=== PATIENT | female | born 1990 | race Caucasian/White ===

== ENCOUNTER 2018-12-04 09:24 | Emergency (ER) | payer OTHER, SELFPAY ==
[2018-12-04 09:27] VITALS: BP 138/83; PULSE 107; RESP 18; TEMP 37.4; O2SAT 98
--- NOTE | 2018-12-04 09:38 | W.ED.GENAD ---
Discharge Plan Disposition Condition: Stable Discharge Details Chief Complaint: Nausea/Vomit/Diar Clinical Impression: Influenza A Primary Care Provider: Edwin Watson ED Provider: Peewee Chaney Home Meds and New Rx's Prescriptions: New oseltamivir [Tamiflu] 6 mg/mL suspension for reconstitution 75 mg PO Q12H 5 Days Qty: 125 RF: 0 Continued 19 29 mg iron- 1 mg tablet,chewable 1 tab PO DAILY Qty: 90 RF: 3 Discharge Instructions Instructions: Influenza (ED) Additional Instructions: Small, frequent sips of fluids or popsicles to maintain hydration. Take medication as prescribed. Tylenol as needed for aches pains or fever. Return for any acute concerns. Please followup with [facility] [employer] [employer] for recheck next week. Medical Decision Making 28-year-old female is approximately 9 weeks presents with 3 days of nausea, vomiting, intermittent loose stools without blood. Positive sick contacts with viral process at work. She has not had any significant abdominal pain or vaginal discharge. She arrives with a pulse of 107, otherwise reassuring vital signs. She is dehydrated in appearance. Difference diagnosis includes influenza, gastroenteritis, hyperemesis of . Patient's chemistries are notable for mild hyponatremia of 135. CBC with white count 4, hematocrit 39. Positive for influenza. Patient resuscitated with 2 L of fluid. IMproved, tolerating po and making urine. Appropriate for outpatient management and will treat influenza with course of Tamiflu. HPI General Mode of arrival: ambulatory. Date/Time Provider Initiated Documentation: 12/04/18 09:25. Limitations to Documentation: no limitations. Information obtained by: patient. History of Present Illness 28 year old F presents to the emergency department with the chief complaint of Nausea and vomiting over 3 days time. No abdominal pain or vaginal dc, described as moderate, Quality is described as aching, and is localized to the abdomen. Patient reports no radiation. Patient started experiencing this day(s) and it has been constant. No relieving factors improve symptom(s), Eating worsens symptoms . Patient notes fever/chills, loss of appetite, malaise and nausea/vomiting; denies chest pain and shortness of breath. Patient did receive the following treatments prior to arrival, none Related Data Home Medications Medication Instructions Recorded Confirmed vitamin no.115-iron 29 1 tab PO DAILY #90 tab 11/29/18 12/04/18 mg-folic acid 1 mg chewable tablet oseltamivir [Tamiflu] 75 mg PO Q12H 5 Days #125 ml 12/04/18 Previous Rx's Medication Instructions Recorded vitamin no.115-iron 29 1 tab PO DAILY #90 tab 11/29/18 mg-folic acid 1 mg chewable tablet oseltamivir [Tamiflu] 75 mg PO Q12H 5 Days #125 ml 12/04/18 Allergies Allergy/AdvReac Type Severity Reaction Status Date / Time No Known Allergies Allergy Verified 12/04/18 09:31 General Stated Complaint: Nausea/Vomit/Diar HERMES: 3 Review of Systems Review of Systems 8 systems reviewed and otherwise negative [facility] Medical History Conductive hearing loss of right ear with unrestricted hearing of left ear (Acute 02/18/18) Conductive hearing loss, bilateral (Acute 06/17/18) Positive test (Acute) Family History Mother Marfans syndrome Social History Smoking/Tobacco Use Status: Never Female Reproductive History Menstrual control method: none Exam Narrative Exam Narrative: GEN: awake, alert, oriented 3. Pleasant, well groomed, interactive. HEAD: Normocephalic, atraumatic ENT: Mucous membranes dry, oropharynx unremarkable, External ear exam unremarkable EYES: PERRL, EOMI NECK: Full ROM, no LEIDY, no menigismus CHEST/RESP: Nontender, clear to auscultation bilateral, no wheeze/rhonchi/rales CARDIOVASCULAR: Regular and tachycardic no murmur, rub des. 2+ Rad pulse bilateral ABDOMEN: Soft, nontender, no mass. +Bowel sounds EXT: Full ROM, no edema, no rash Neuro: Grossly normal neurologic exam, conversant, interactive. Psych: Speech fluent, thoughts congruent, affect normal Course Vital Signs Temperature 37.4 C 12/04/18 09:27 Pulse 107 H 12/04/18 09:27 Respiratory Rate 18 12/04/18 09:27 Blood Pressure 138/83 12/04/18 09:27 Pulse Oximetry 98 12/04/18 09:27 Temperature 37.4 C 12/04/18 09:27 Temperature Source Skin 12/04/18 09:27 Pulse 107 H 12/04/18 09:27 Respiratory Rate 18 12/04/18 09:27 Blood Pressure 138/83 12/04/18 09:27 Pulse Oximetry 98 12/04/18 09:27 Oxygen Delivery Method Room Air 12/04/18 09:27 Oxygen Flow Rate 0 12/04/18 09:27 Pain Level 8 12/04/18 09:27
[2018-12-04] MEDS: Lactated Ringers 1,000 ML 1000 ML IV (09:46)
[2018-12-04 10:07] LABS: Abs Immature Grans 0.01 k/cumm (0.0-0.09); Absolute Basophil Count 0.02 k/cumm (0.0-0.2); Absolute Monocyte Count 0.62 k/cumm (0.11-0.7); Absolute Neutrophil Count 2.83 k/cumm (1.2-6.7); Basophils % 0.5; HCT 39.9 % (36.0-46.0); HGB 13.2 g/dL (12.0-15.5); Immature Grans % 0.2; Lymphocytes % 14.7; Mean Corp. HGB Concentration 33.1 g/dL (32.0-36.0); Mean Corpuscular Hemoglobin 31.3 pg (27.0-33.0); Mean Corpuscular Volume 94.5 fL (80-95); Mean Platelet Volume 10.7 fL (8.0-11.0); Monocytes % 15.2; Neutrophils % 69.4; Platelet Count 189 x1000/uL (130-400); RBC 4.22 m/cumm (4.00-5.20); RBC Distribution Width 11.5 % (11.7-14.6); White Blood Cell Count 4.08 k/cumm (4.4-10.8)
[2018-12-04] MEDS: Acetaminophen 500 MG TAB 1000 MG PO (10:07)
[2018-12-04 10:16] LABS: ALT 26 U/L (12-78); AST 19 U/L (15-37); Albumin 3.8 g/dL (3.4-5.0); Alkaline Phosphatase 75 U/L (46-116); BUN 8 mg/dL (7-18); Bilirubin, Total 0.3 mg/dL (0.2-1.0); CREATININE 0.75 mg/dL (0.55-1.02); Calcium 9.2 mg/dL (8.5-10.1); Chloride 100 mmol/L (98-107); Glucose 92 mg/dL (70-100); Magnesium 1.7 mg/dL (1.8-2.4); Potassium 3.7 mmol/L (3.5-5.1); Sodium 135 mmol/L (136-145); Total Protein 7.6 g/dL (6.4-8.2)
[2018-12-04 10:29] VITALS: BP 106/60; PULSE 100; TEMP 38; O2SAT 98
[2018-12-04] MEDS: DEXTROSE 5%-0.9% SALINE 1,000 ML 250 ML IV (10:40)
--- NOTE | 2018-12-04 10:40 | NUR.NOTE ---
patient denies nausea at this time, fluid ininfusing, will be medicated woth tamiflu Nursing Note:
[2018-12-04] MEDS: Oseltamivir 6 MG/ML 60 ML BTL 75 MG PO (11:05)
--- NOTE | 2018-12-04 11:06 | NUR.NOTE ---
patient medicated per MD order Nursing Note:
[2018-12-04 11:20] LABS: Bilirubin Negative (Negative); Blood Negative (Negative); Clarity Clear; Glucose Negative (Negative); Ketones Negative (Negative); Leukocyte Esterase Negative (Negative); Nitrite Negative (Negative); Urobilinogen 0.2 EU/dL (Up TO 0.2); pH 6.5 (5-8)
--- NOTE | 2018-12-04 12:03 | NUR.NOTE ---
patient received discharge and follow up instruction per MD order, IV dc'd Nursing Note:
== END 2018-12-04 12:05 | disposition home or self-care (01) ==
PROVIDERS: Emergency Provider Emergency Medicine; PCP Internal Medicine
DX: O99.89 Other specified diseases and conditions complicating pregnancy, childbirth and the puerperium (principal); J10.2 Influenza due to other identified influenza virus with gastrointestinal manifestations; Z3A.09 9 weeks gestation of pregnancy
CPT/HCPCS: 36415; 80053; 87449; 96360; 96361; 99284; 81003; 83735; 85025; 99283; J7042

== ENCOUNTER 2018-12-09 14:42 | Outpatient (CLI) | payer OTHER, SELFPAY ==
--- NOTE | 2018-12-09 15:23 | DI.US_ITS ---
SYMPTOMS/DIAGNOSIS: VAGINAL BLEEDING, ANTEPARTUM, O20.9; NO HEARTBEAT DETECTED, ? VIABILITY OB ULTRASOUND: Many abnormalities cannot be diagnosed. A normal exam does not exclude a congenital anomaly. Radiology No. [id number] LMP: Exam Date: 12/09/2018 [facility] wks days on EDC ([facility]) Confirmed: HISTORY: PREDICTED GESTATIONAL AGE NUMBER weeks with a range of week to weeks. 1 2 3 Multiple Determined by___1STUS___LMP___HISTORY Info. pertaining to fetus # PLACENTA PRESENTATION Grade Cephalic___ Anterior___Posterior___ Breech____ Right Left Transverse(head right___ Fundal___Low-lying___Previa___ Transverse(head left___ Varying BIOMETRY AMNIOTIC FLUID BPD: mm weeks Normal HC: mm weeks Oligo Polyhydramnios AC: mm weeks FL: mm weeks AMNIOTIC FLUID INDEX >26 WK CRL: 17 mm 8+1 weeks Cisterna Magna: mm CI: RUQ: LUQ Cerebellum: cm EFW: grams Percentile RLQ: LLQ Total: cms Composite AGE= wks EDC by US BIOPHYSICAL PROFILE ANATOMY IDENTIFIED SCORE 0/2 Heart: 4-Chamber___Rate:BPM LVOT: RVOT: Amniotic Fluid(>2cms)____ Stomach: Kidneys: Respirations (>30 secs) Bladder: Post. Fossa: Body Flex/Extension 3 vessel cord: Ventricles: cord insertion: Lips:____ Extremity Flex/Extension spinal morphology: Nose: Total Score= Palate: NS=not seen COMMENTS: Transabdominal and transvaginal exams were performed. A gestational sac is seen within the endometrium. A pole is seen with measurements corresponding to 8 weeks 1 day. No cardiac activity is seen. The gestational sac appears small for gestational age. The yolk sac has an abnormal flattened appearance. The ovaries appear normal. There is no evidence of free fluid or ectopic . IMPRESSION: Findings consistent with demise.
== END 2018-12-09 15:02 ==
PROVIDERS: PCP Internal Medicine; Visit Provider Obstetrics & Gynecology
DX: O20.9 Hemorrhage in early pregnancy, unspecified (principal); O02.1 Missed abortion
CPT/HCPCS: 76801

== ENCOUNTER 2018-12-18 15:42 | Outpatient (CLI) | payer OTHER, SELFPAY ==
[2018-12-18 16:23] LABS: HGB 12.9 g/dL (12.0-15.5); Mean Corp. HGB Concentration 32.3 g/dL (32.0-36.0); Mean Corpuscular Hemoglobin 30.2 pg (27.0-33.0); Mean Corpuscular Volume 93.7 fL (80-95); Mean Platelet Volume 10.3 fL (8.0-11.0); Platelet Count 279 x1000/uL (130-400); RBC 4.27 m/cumm (4.00-5.20); RBC Distribution Width 11.6 % (11.7-14.6); White Blood Cell Count 7.61 k/cumm (4.4-10.8)
[2018-12-18 17:27] LABS: HCG Quant, Pregnancy 257 mIU/mL (1-3)
== END 2018-12-18 16:02 ==
PROVIDERS: PCP Internal Medicine; Visit Provider Obstetrics & Gynecology
DX: O20.9 Hemorrhage in early pregnancy, unspecified (principal); O03.9 Complete or unspecified spontaneous abortion without complication
CPT/HCPCS: 36415; 85027; 86900; 86901; 84702

== ENCOUNTER 2019-05-22 11:36 | Emergency (ER) | payer OTHER, SELFPAY ==
[2019-05-22 11:41] VITALS: BP 125/64; PULSE 86; RESP 14; TEMP 36.7; O2SAT 99
--- NOTE | 2019-05-22 11:53 | DI.CT_ITS ---
SYMPTOM/DIAGNOSIS: CENTRAL CHEST PAIN, SOB. HX MARFANS AND AA CT ANGIOGRAPHY CHEST: 05/22 CT angiography was performed with multi slice acquisition and multi planar and 3D reconstruction. CT angiography of the chest was performed with a bolus infusion of 57 cc Omnipaque 350. Aorta is of normal diameter. No aortic dissection. Major branch vessels of the aorta in the chest appear normal. Right and left subclavian arteries appear normal in to the axillae. No mediastinal hematoma. No adenopathy. No pleural effusion. The lungs are clear. Pulmonary arterial circulation not well opacified. In the upper abdomen there is unremarkable appearance of visualized portions of liver, spleen, pancreas, adrenals, and kidneys. Visualized abdominal aorta is of normal diameter to the level of the bifurcation. Celiac trunk, SMA, BEN and renal arteries appear normal. There is normal appearance of the adrenals and kidneys. No upper abdominal adenopathy seen. CONCLUSION: Negative CT angiography of the chest.
--- NOTE | 2019-05-22 11:55 | W.ED.GENAD ---
Discharge Plan Disposition Patient Disposition: HOME Condition: Good Discharge Details Chief Complaint: Orthopedic Clinical Impression: Chest pain, Muscle strain Primary Care Provider: Edwin Watson ED Provider: Axel Sullivan Home Meds and New Rx's Prescriptions: New lidocaine [Lidoderm] 1 PATCH patch 1 patch Topical Q24H Qty: 4 RF: 0 Discharge Instructions Instructions: Muscle Strain (ED) Additional Instructions: At this time your CT scan shows no evidence of lung problem, or vessel problem. I suspect your symptoms are from a strained muscle. Please take the Lidoderm patch as directed. Please take Tylenol Motrin as needed for pain. If you notice any worsening of your symptoms, or any new symptoms such as vomiting, diarrhea, fever, chills, shortness of breath, chest pain, numbness, weakness, or fainting , please return immediately to the emergency department for reevaluation. Please follow up with your primary care provider as soon as possible for reassessment and reevaluation. As always, it was a pleasure participating in your medical care today. Referrals: Edwin Watson MD [Primary Care Provider] - Medical Decision Making This is a 29-year-old female with a past medical history of Marfan syndrome and aortic aneurysm. She presents today with notable chest tightness and achiness. Notably worsened with movement of the shoulder requiring utilization of pectoralis major and minor. No pulse deficit, no neurologic deficit, no evidence of significant deformity. Reproducible tenderness is present on palpation of the sternum. No severe murmur auscultated at this time. Oxygen saturation normal, lung sounds appear clear. Differential at this time is concerning for muscle strain, but also because of her history dissection, aneurysm, or pneumothorax. We will get a CT scan to evaluate for further etiology, evaluate from a laboratory perspective, place Lidoderm patch and reassess 12:58 PM Patient's laboratory work-up has returned, no white count, normal electrolytes, normal renal function, troponin normal, EKG unremarkable. CT scan has returned and shows no evidence of aneurysm, dissection, pneumothorax, or other acute abnormality per Dr. Sifuentes. Patient has near complete resolution of her pain with the application of the Lidoderm patch and Toradol. Patient is feeling much better at this time. I feel that her signs and symptoms at this time are clinically consistent with muscle strain and inconsistent with ACS, dissection, aneurysm or pneumothorax or pneumonia. At this time the patient feels very well, continues to demonstrate normal neurologic and vascular exam for upper extremities head neck. I have extensively reviewed the treatment plan and discharge instructions with the patient. I have addressed all patient concerns at this time. The patient was made aware of what symptoms to monitor for that would warrant a return to the emergency department. Discussed the plan with the patient, they demonstrate verbal understanding and agreement with our assessment and plan at this time. EKG 12: 01 Rate 65, intervals normal aside for a slightly shortened DC interval, QRS normal. No significant ST elevations or depressions, no evidence of delta wave. No other abnormalities. HPI General Date/Time Provider Initiated Documentation: 05/22/19 11:38. HPI Narrative: This is a 29-year-old female with a past medical history of Marfan syndrome, aortic aneurysm, who presents today for evaluation of chest pain. The patient states that at 5 AM she developed an onset of achy/stabbing chest pain. She denies a tearing sensation. It is worsened with movement of her arm. Throughout the day she noticed a gradually worsening component, in conjunction with some shortness of breath. When she went to open a door with her left arm it significantly worsened the pain. Patient denies any cough, fever, chills, numbness, tingling or weakness. She denies history of aneurysm neck rupture. She is not on blood thinners. She denies history of blood clot. She denies any other complaints at this time. She denies any other associated modifying factors. Related Data Home Medications Medication Instructions Recorded Confirmed lidocaine [Lidoderm] 1 patch TOPICAL Q24H #4 patch 05/22/19 Previous Rx's Medication Instructions Recorded lidocaine [Lidoderm] 1 patch TOPICAL Q24H #4 patch 05/22/19 Allergies Allergy/AdvReac Type Severity Reaction Status Date / Time No Known Allergies Allergy Verified 05/22/19 11:47 General Stated Complaint: Orthopedic HERMES: 3 Review of Systems Review of Systems All systems reviewed & are unremarkable except as noted in HPI and below PFSH Social History Smoking/Tobacco Use Status: Never Alcohol Intake: current Alcohol Intake frequency: a few times a week Alcohol type: beer Drug use: Never Substance use type: does not use Do you feel safe at home: Yes Do you feel safe in your relationship?: Yes Female Reproductive History Menstrual control method: none Exam Narrative Exam Narrative: 1.Const: Well-nourished, Well-developed, appearing stated age 2.Eyes: PERRL, no conjunctival injection, and symmetrical lids. 3.ENT: Atraumatic external nose and ears. Moist MM. Neck: Symmetric, trachea midline, No thyromegaly. 4.CVS: +S1/S2, No murmurs or gallops. Peripheral pulses 2+ and equal in all extremities. Brisk capillary refill in all extremities. 5.RESP: Unlabored respiratory effort. Clear to auscultation bilaterally. No wheezes rales or rhonchi. 6.GI: Soft, Nontender/Nondistended, No hepatosplenomegaly. No guarding or rebound. 7.MSK: Normocephalic/Atraumatic, Extremities w/o deformity No cyanosis or clubbing, Normal movement of all extremities. Notably long slender extremities. Notable reproducible chest tenderness on palpation of the mid to lower sternum as well as left side of the chest wall. Radial pulses +2 bilaterally. No crepitus or restriction in movement of the left shoulder, however the patient does have notable worsening of her pain with shoulder abduction when at 90 degrees, notably worse pain with utilization of the chest wall muscles. Normal movement and strength in the upper extremities bilaterally peer 8.Skin: Warm, Dry. No rashes or lesions. 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 Sensation grossly intact, no focal neurologic deficits. All 6 cardinal planes of vision are fully intact. No evidence of rotatory or vertical nystagmus. The patient demonstrated a normal [id number], good dexterity. There was no evidence of dysdiadochokinesia. Patient was able to ambulate without difficulty. There was no wide-based gait. Romberg, and [id number] are both normal on testing. Sensation was intact bilaterally as well as muscle strength bilaterally for all extremities. Patient was able to verbalize butter cup with no slurring, or miss pronunciation. 10.Psych: (AAO) x3. Appropriate mood and affect Course Vital Signs Temperature 36.7 C 05/22/19 11:41 Pulse 86 05/22/19 11:41 Respiratory Rate 14 05/22/19 11:41 Blood Pressure 125/64 05/22/19 11:41 Pulse Oximetry 99 05/22/19 11:41 Temperature 36.7 C 05/22/19 11:41 Temperature Source Temporal Artery Scan 05/22/19 11:41 Pulse 86 05/22/19 11:41 Respiratory Rate 14 05/22/19 11:41 Respiratory Effort Non-Labored 05/22/19 11:44 Blood Pressure 125/64 05/22/19 11:41 Blood Pressure Position Sitting 05/22/19 11:41 Pulse Oximetry 99 05/22/19 11:41 Oxygen Delivery Method Room Air 05/22/19 11:41 Oxygen Flow Rate 0 05/22/19 11:41 Pain Level 7 05/22/19 11:45 Comment 05/22/19 11:41
[2019-05-22] MEDS: Normal Saline 1,000 ML 1000 ML IV (12:12)
[2019-05-22] MEDS: Lidocaine 5% Patch 1 PATCH TP (12:12)
--- NOTE | 2019-05-22 12:15 | ED.GENADUL_ITS ---
Discharge Plan Disposition Patient Disposition: HOME Condition: Good Discharge Details Chief Complaint: Orthopedic Clinical Impression: Chest pain, Muscle strain Primary Care Provider: Edwin Watson ED Provider: Axel Sullivan Home Meds and New Rx's Prescriptions: New lidocaine [Lidoderm] 1 PATCH patch 1 patch Topical Q24H Qty: 4 RF: 0 Discharge Instructions Instructions: Muscle Strain (ED) Additional Instructions: At this time your CT scan shows no evidence of lung problem, or vessel problem. I suspect your symptoms are from a strained muscle. Please take the Lidoderm patch as directed. Please take Tylenol Motrin as needed for pain. If you notice any worsening of your symptoms, or any new symptoms such as vomiting, diarrhea, fever, chills, shortness of breath, chest pain, numbness, weakness, or fainting , please return immediately to the emergency department for reevaluation. Please follow up with your primary care provider as soon as possible for reassessment and reevaluation. As always, it was a pleasure participating in your medical care today. Referrals: Edwin Watson MD [Primary Care Provider] - Medical Decision Making This is a 29-year-old female with a past medical history of Marfan syndrome and aortic aneurysm. She presents today with notable chest tightness and achiness. Notably worsened with movement of the shoulder requiring utilization of pectoralis major and minor. No pulse deficit, no neurologic deficit, no evidence of significant deformity. Reproducible tenderness is present on palpation of the sternum. No severe murmur auscultated at this time. Oxygen saturation normal, lung sounds appear clear. Differential at this time is concerning for muscle strain, but also because of her history dissection, aneurysm, or pneumothorax. We will get a CT scan to evaluate for further etiology, evaluate from a laboratory perspective, place Lidoderm patch and r eassess 12:58 PM Patient's laboratory work-up has returned, no white count, normal electrolytes, normal renal function, troponin normal, EKG unremarkable. CT scan has returned and shows no evidence of aneurysm, dissection, pneumothorax, or other acute abnormality per Dr. Sifuentes. Patient has near complete resolution of her pain with the application of the Lidoderm patch and Toradol. Patient is feeling much better at this time. I feel that her signs and symptoms at this time are clinically consistent with muscle strain and inconsistent with ACS, dissection, aneurysm or pneumothorax or pneumonia. At this time the patient feels very well, continues to demonstrate normal neurologic and vascular exam for upper extremities head neck. I have extensively reviewed the treatment plan and dis charge instructions with the patient. I have addressed all patient concerns at this time. The patient was made aware of what symptoms to monitor for that would warrant a return to the emergency department. Discussed the plan with the patient, they demonstrate verbal understanding and agreement with our assessment and plan at this time. EKG 12: 01 Rate 65, intervals normal aside for a slightly shortened [place] interval, QRS normal. No significant ST elevations or depressions, no evidence of delta wave. No other abnormalities. HPI General Date/Time Provider Initiated Documentation: 05/22/19 11:38 . HPI Narrative: This is a 29-year-old female with a past medical history of Marfan syndrome, aortic aneurysm, who presents today for evaluation of chest pain. The patient states that at 5 AM she developed an onset of achy/stabbing chest pain. She denies a tearing sensation. It is worsened with movement of her arm. Throughout the day she noticed a gradually worsening component, in conjunction with some shortness of breath. When she went to open a door with her left arm it significantly worsened the pain. Patient denies any cough, fever, chills, numbness, tingling or weakness. She denies history of aneurysm neck rupture. She is not on blood thinners. She denies history of blood clot. She denies any other complaints at this time. She denies any other associated modifying factors. Related Data Home Medications Medication Instructions Recorded Confirmed lidocaine [Lidoderm] 1 patch TOPICAL Q24H #4 patch 05/22/19 Previous Rx's Medication Instructions Recorded lidocaine [Lidoderm] 1 patch TOPICAL Q24H #4 patch 05/22/19 Allergies Allergy/AdvReac Type Severity Reaction Status Date / Time No Known Allergies Allergy Verified 05/22/19 11:47 General Stated Complaint: Orthopedic HERMES: 3 Review of Systems Review of Systems All systems reviewed & are unremarkable except as noted in HPI and below PFSH Social History Smoking/Tobacco Use Status: Never Alcohol Intake: current Alcohol Intake frequency: a few times a week Alcohol type: beer Drug use: Never Substance use type: does not use Do you feel safe at home: Yes Do you feel safe in your relationship?: Yes Female Reproductive History Menstrual control method: none Exam Narrative Exam Narrative: 1.Const: Well-nourished, Well-developed, appearing stated age 2.Eyes: PERRL, no conjunctival injection, and symmetrical lids. 3.ENT: Atraumatic external nose and ears. Moist MM. Neck: Symmetric, trachea midline, No thyromegaly. 4.CVS: +S1/S2, No murmurs or gallops. Peripheral pulses 2+ and equal in all extremities. Brisk capillary refill in all extremities. 5.RESP: Unlabored respiratory effort. Clear to auscultation bilaterally. No wheezes rales or rhonchi. 6.GI: Soft, Nontender/Nondistended, No hepatosplenomegaly. No guarding or rebound. 7.MSK: Normocephalic/Atraumatic, Extremities w/o deformity No cyanosis or clubbing, Normal movement of all extremities. Notably long slender extremities. Notable reproducible chest tenderness on palpation of the mid to lower sternum as well as left side of the chest wall. Radial pulses +2 bilaterally. No crepitus or restriction in movement of the left shoulder, however the patient does have notable worsening of her pain with shoulder abduction when at 90 degrees, notably worse pain with utilization of the chest wall muscles. Normal movement and strength in the upper extremities bilaterally peer 8.Skin: Warm, Dry. No rashes or lesions. 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 Sensation grossly intact, no focal neurologic deficits. All 6 cardinal planes of vision are fully intact. No evidence of rotatory or vertical nystagmus. The patient demonstrated a normal [id number]-vimuwe, good dexterity. There was no evidence of dysdiadochokinesia. Patient was able to ambulate without difficulty. There was no wide-based gait. Romberg, and [id number]-[id number] are both normal on testing. Sensation was intact bilaterally as well as muscle strength bilaterally for all extremities. Patient was able to verbalize butter cup with no slurring, or miss pronunciation. 10.Psych: (AAO) x3. Appropriate mood and affect Course Vital Signs Temperature 36.7 C 05/22/19 11:41 Pulse 86 05/22/19 11:41 Respiratory Rate 14 05/22/19 11:41 Blood Pressure 125/64 05/22/19 11:41 Pulse Oximetry 99 05/22/19 11:41 Temperature 36.7 C 05/22/19 11:41 Temperature Source Temporal Artery Scan 05/22/19 11:41 Pulse 86 05/22/19 11:41 Respiratory Rate 14 05/22/19 11:41 Respiratory Effort Non-Labored 05/22/19 11:44 Blood Pressure 125/64 05/22/19 11:41 Blood Pressure Position Sitting 05/22/19 11:41 Pulse Oximetry 99 05/22/19 11:41 Oxygen Delivery Method Room Air 05/22/19 11:41 Oxygen Flow Rate 0 05/22/19 11:41 Pain Level 7 05/22/19 11:45 Comment 05/22/19 11:41
[2019-05-22 12:16] LABS: Abs Immature Grans 0.02 k/cumm (0.0-0.09); Absolute Basophil Count 0.03 k/cumm (0.0-0.2); Absolute Eosinophil Count 0.09 k/cumm (0.0-0.7); Absolute Lymphocyte Count 1.84 k/cumm (1.2-3.4); Absolute Monocyte Count 0.55 k/cumm (0.11-0.7); Absolute Neutrophil Count 4.57 k/cumm (1.2-6.7); Basophils % 0.4; Eosinophils % 1.3; HCT 41.9 % (36.0-46.0); HGB 14.1 g/dL (12.0-15.5); Immature Grans % 0.3; Lymphocytes % 25.9; Mean Corp. HGB Concentration 33.7 g/dL (32.0-36.0); Mean Corpuscular Hemoglobin 31.2 pg (27.0-33.0); Mean Corpuscular Volume 92.7 fL (80-95); Mean Platelet Volume 10.5 fL (8.0-11.0); Monocytes % 7.7; Neutrophils % 64.4; Platelet Count 248 x1000/uL (130-400); RBC 4.52 m/cumm (4.00-5.20)
[2019-05-22 12:33] LABS: ALT 18 U/L (12-78); AST 15 U/L (15-37); Albumin 4.2 g/dL (3.4-5.0); Alkaline Phosphatase 77 U/L (46-116); BUN 11 mg/dL (7-18); Bilirubin, Total 0.9 mg/dL (0.2-1.0); CREATININE 0.74 mg/dL (0.55-1.02); Calcium 9.1 mg/dL (8.5-10.1); Chloride 103 mmol/L (98-107); Glucose 107 mg/dL (70-100); Potassium 3.7 mmol/L (3.5-5.1); Sodium 140 mmol/L (136-145)
[2019-05-22] MEDS: Omnipaque 350 MG/ML 100 ML BTL IJ (12:34)
[2019-05-22 12:35] LABS: PTT Activated 24.1 sec (21.0-31.4); Prothrombin Time 9.9 sec (9.3-11.0)
[2019-05-22 12:39] LABS: Troponin I < 0.05 ng/mL (0.00-0.06)
[2019-05-22] MEDS: Ketorolac 30 MG/ML VIAL (12:40)
[2019-05-22 17:43] VITALS: BP 125/64; PULSE 86; RESP 14; TEMP 36.7; O2SAT 99
== END 2019-05-22 13:14 | disposition home or self-care (01) ==
PROVIDERS: Emergency Provider Student in an Organized Health Care Education/Training Program; PCP Internal Medicine
DX: R07.9 Chest pain, unspecified (principal); I71.2 Thoracic aortic aneurysm, without rupture
CPT/HCPCS: 36415; 71275; 74175; 80053; 86850; 86900; 86901; 93005; 96361; 96374; 99285; 84484; 85025; 85610; 85730; 93010; J1885; J3490; L3650